=== PATIENT | female | born 1970 | race Caucasian/White ===

== ENCOUNTER → 2024-01-12 10:13 | Outpatient (BNVA) | payer BC, OTHER, SELFPAY | PROVIDERS: PCP Family Medicine; Visit Provider Family Medicine | DX: Z00.00 Encounter for general adult medical examination without abnormal findings (principal) | CPT/HCPCS: 80053; 80061; 84443; 85025 ==

== ENCOUNTER 2024-05-03 16:16 | Outpatient (CLI) | payer BC, OTHER, SELFPAY ==
[2024-05-03 16:44] LABS: Basophils % 0.1 %; Eosinophils % 0.1 %; Hematocrit 34.4 % (36-47); Lymphocytes # 1.4 10^3/uL (0.8-4.8); Lymphocytes % 20.2 %; Mean Corpuscular HGB Conc 33.1 g/dL (30-55); Mean Corpuscular Volume 90.5 fl (85-98); Mean Platelet Volume 9.2 fL (7.4-10.4); Monocytes # 0.5 10^3/uL (0.2-0.9); Monocytes % 6.9 %; Neutrophils # 5.05 10^3/uL (1.8-7.7); Neutrophils % 72.3 %; Nucleated Red Blood Cells % 0 %; Platelet Count 443 10^3/cmm (157-399); Red Cell Distribution Width 13.9 % (12.1-15.1); White Blood Count 6.99 10^3/uL (3.29-11.43)
[2024-05-03 17:03] LABS: Iron 25 ug/dL (37-145)
== END 2024-05-03 16:17 | disposition home or self-care (01) ==
LOC: LAB 16:24
PROVIDERS: PCP Family Medicine; Visit Provider Family Medicine
DX: K51.90 Ulcerative colitis, unspecified, without complications (principal)
CPT/HCPCS: 36415; 83540; 85025

== ENCOUNTER → 2024-12-10 15:09 | Outpatient (BNVA) | payer BC, SELFPAY | PROVIDERS: PCP Family Medicine; Visit Provider Family Medicine | DX: Z53.9 Procedure and treatment not carried out, unspecified reason (principal) | CPT/HCPCS: 82977; 83615; 84450; 84460 ==

== ENCOUNTER → 2024-12-24 10:23 | Outpatient (BNVA) | payer BC, SELFPAY | PROVIDERS: PCP Family Medicine; Visit Provider Student in an Organized Health Care Education/Training Program | DX: M25.521 Pain in right elbow (principal); M25.522 Pain in left elbow; M77.11 Lateral epicondylitis, right elbow; M77.12 Lateral epicondylitis, left elbow | CPT/HCPCS: 73080 ==